=== PATIENT | male | born 1960 | race Caucasian/White ===

== ENCOUNTER 2020-11-29 12:44 | Emergency (ER) | payer OTHER, SELFPAY ==
[2020-11-29 12:45] VITALS: BP 144/84; PULSE 71; RESP 16; TEMP 36.3; O2SAT 96; BMI 35.5
[2020-11-29 13:32] LABS: Absolute Lymphocyte Count 1.43 X10^3/uL (0.83-4.51); Basophil# 0.03 X10^3/uL; Basophil% 0.4 % (0-1); Eosinophil# 0.23 X10^3/uL; Eosinophils% 3.2 % (0-5); Hematocrit 43.6 % (40-54); Hemoglobin 14.9 g/dL (13.0-16.5); Lymphocyte # 1.43 X10^3/ul (0.83-4.51); Lymphocyte % 19.8 % (19-41); Mean Corp Hgb Conc 34.2 g/dL (32-36); Mean Corpuscular Hgb 32.2 pg (27.0-32.0); Mean Corpuscular Volume 94.2 fL (80-94); Monocyte# 0.53 X10^3/uL; Monocyte% 7.3 % (0-10); NRBC Flagged by Analyzer 0 % (0-5); Neutrophil # 4.97 X10^3/uL (2.7-7.7); Neutrophil % 68.7 % (47-70); Platelet Count 180 K/mm3 (150-450); RBC Distribution Width CV 12.1 % (11.6-14.6); RBC Distribution Width SD 42.1 fl (35.1-43.9); Red Blood Count 4.63 M/mm3 (4.6-6.2); White Blood Count 7.2 K/mm3 (4.4-11.0)
--- NOTE | 2020-11-29 13:32 | EKG12_ITS ---
Test Reason : Blood Pressure : / mmHG Vent. Rate : 067 BPM Atrial Rate : 067 BPM P-R Int : 158 ms QRS Dur : 092 ms QT Int : 374 ms P-R-T Axes : 046 032 041 degrees QTc Int : 395 ms Normal sinus rhythm Normal ECG Confirmed by YT GUEVARA, ZION ([id number]), design editor CHRISTINA JENKINS ([id number]) on 12/03/2020 11:29:16 AM Referred By: MONSE Confirmed By:ZION CRAWFORD MD
--- NOTE | 2020-11-29 13:39 | NURSING ---
NO OLD EKGS
--- NOTE | 2020-11-29 13:46 | RAD_ITS ---
STUDY: X-RAY CHEST REASON FOR EXAM: Male, 60 years old. SYNCOPE TECHNIQUE: Single AP portable view of the chest. COMPARISON: None. FINDINGS: EKG electrodes are seen. The lungs are clear and expanded. Scattered calcified granulomas. There is no demonstrated pleural abnormality. There is borderline cardiomegaly. Normal mediastinum and grecia. Normal visualized pulmonary arteries. Normal visualized aortic arch and descending thoracic aorta. Normal visualized thoracic spine. Normal visualized ribs, clavicles, and shoulders. There is no demonstrated abnormality of the visualized soft tissue structures of the upper abdomen. RAD/Chest 1 View (Portable) IMPRESSION: Borderline cardiomegaly. Electronically Signed: Joel Robison MD at 14:20 EDT , Service support ,
[2020-11-29 13:47] LABS: AST(SGOT) 22 U/L (15-37); Alanine Aminotransfer ALT/SGPT 36 U/L (16-61); Albumin, Serum 3.5 g/dL (3.2-5.0); Alkaline Phosphatase 48 U/L (45-117); Anion Gap 3 (5-15); BUN 17 mg/dL (7-18); Calcium,Total 8.8 mg/dL (8.5-10.1); Chloride 111 mmol/L (98-107); EST Glomerular Filtration Rate 81 mL/min (>60); Est Glom Filt Rate - Afr Amer 97 mL/min (>60); Estimated Creatinine Clearance 85.14 ml/min; Globulin 3.5 g/dL (2.2-4.2); Glucose 104 mg/dL (74-106); Potassium 4.2 mmol/L (3.5-5.1); Sodium Level 142 mmol/L (136-145)
[2020-11-29 13:48] VITALS: O2SAT 96
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
[2020-11-29 14:28] VITALS: BP 136/84; BP 136/86; BP 145/81; PULSE 61; PULSE 63; PULSE 69
[2020-11-29 14:40] LABS: Troponin-I HS 10 pg/mL (3.0-78.0)
[2020-11-29 15:03] VITALS: BP 139/83; PULSE 69; RESP 16; O2SAT 97
[2020-11-29 16:42] VITALS: BP 138/67; PULSE 72; RESP 16; O2SAT 98
== END 2020-11-29 16:43 | disposition home or self-care (01) ==
PROVIDERS: Emergency Provider Emergency Medicine
DX: R55 Syncope and collapse (principal)
CPT/HCPCS: 71045; 80053; 84484; 85025; 87426; 93005; 99285; A4216